=== PATIENT | male | born 1980 | race African-American/Black ===

== ENCOUNTER 2020-11-25 12:07 | Emergency (ER) | payer MEDICAID, OTHER ==
[~2020-11-25] VITALS: Ht 182.9 cm; Wt 115.0 kg
[2020-11-25] MEDS ORDERED: KETOROLAC 30 MG/1 ML IM ONE (12:30)
--- NOTE | 2020-11-25 13:00 | NUR ---
PT BIB EMS TO R/O POSS DVT. PT HAS CO L LEG SWELLING FOR 4 DAYS. DENIES CP OR SOB
--- NOTE | 2020-11-25 14:00 | NUR ---
US COMPLETED, WAITING FOR DC
[2020-11-25 14:21] VITALS: BP 159/85
--- NOTE | 2020-11-25 14:21 | NUR ---
Patient/Caregiver given discharge instructions and they have confirmed that they understand the instructions. Patient ambulatory with steady gait.
== END 2020-11-25 14:23 | disposition home or self-care (01) ==
LOC: ED 13:25 → EDBD 13:25 → ED 14:23
DX: M79.662 Pain in left lower leg (principal); R60.0 Localized edema; I10 Essential (primary) hypertension; F17.200 Nicotine dependence, unspecified, uncomplicated
CPT/HCPCS: 93971; 96372; 99284; J1885